=== PATIENT | female | born 1970 | race African-American/Black ===

== ENCOUNTER 2017-04-12 19:25 | Inpatient (IN) | payer OTHER ==
[~2017-04-12] VITALS: Ht 162.6 cm; Wt 112.2 kg
[2017-04-12 19:55] VITALS: BP 141/66
[2017-04-12] MEDS ORDERED: ONDANSETRON ODT 4 MG TAB.RAPDIS PO PRN (20:30)
[2017-04-12] MEDS ORDERED: CONTRAST GIVEN MC PRN (20:30)
[2017-04-12] MEDS ORDERED: ACETAMINOPHEN 500 MG TABLET PO PRN (20:45)
[2017-04-12] MEDS: IV 1/2 NORMAL SALINE 1,000 ML IV SCH (20:48)
[2017-04-12] MEDS: ENOXAPARIN ** NOTE DOSE ** SYRINGE SQ SCH (20:54)
[2017-04-12] MEDS: ACETAMINOPHEN 325 MG TABLET PO PRN (20:55)
[2017-04-12] MEDS ORDERED: TRAM50TA PO (21:11)
[2017-04-12] MEDS ORDERED: celebrex (21:11)
[2017-04-12] MEDS: CLINDAMYCIN 600MG PREMIX 50 ML IV SCH (23:39)
[2017-04-13] MEDS: IV 1/2 NORMAL SALINE 1,000 ML IV SCH ×4 (05:25→19:41)
[2017-04-13] MEDS: ACETAMINOPHEN 325 MG TABLET PO PRN ×3 (05:34→20:29)
[2017-04-13 05:46] VITALS: BP 137/80
[2017-04-13 06:15] LABS: BASO % 0 % (0-3); EOS % 0 % (0-3); HEMATOCRIT 34.7 % (36.0-47.0); HEMOGLOBIN 11.5 g/dL (12.0-15.5); LYMPH # 1.8 x10^3/uL (1.0-4.8); LYMPH % 13 % (24-48); MEAN CORPUSCULAR HEMOGLOBIN 27 pg (25-35); MEAN CORPUSCULAR HGB CONC 33 g/dL (31-37); MEAN CORPUSCULAR VOLUME 80 fL (79-100); MONO # 0.8 x10^3/uL (0.0-1.1); MONO % 6 % (0-9); NEUT # 10.9 x10^3uL (1.8-7.7); NEUT % 80 % (31-73); PLATELET COUNT 235 x10^3/uL (140-400); RED BLOOD COUNT 4.33 x10^6/uL (3.50-5.40); RED CELL DISTRIBUTION WIDTH 16.6 % (11.5-14.5); WHITE BLOOD COUNT 13.5 x10^3/uL (4.0-11.0)
[2017-04-13] MEDS: CLINDAMYCIN 600MG PREMIX 50 ML IV SCH ×3 (06:20→21:19)
[2017-04-13 06:22] LABS: CALCIUM 8.9 mg/dL (8.5-10.1); CREATININE 0.7 mg/dL (0.6-1.0); POTASSIUM 3.6 mmol/L (3.5-5.1)
[2017-04-13] MEDS ORDERED: IOHEXOL 300 MG/ML 75 ML VIAL. IV ONE (07:45)
--- NOTE | 2017-04-13 08:16 | RAD ---
CAD imaging of the chest Indication: Elevated d-dimer, chest pain. Technique: CT angiogram of chest with 75 mL of Omnipaque 300 IV contrast with sagittal and coronal MIP reformats. Comparison: None Findings: No evidence of filling defects in the central, segmental or subsegmental pulmonary arteries. Heart is normal in size. No pericardial or pleural effusion. No axillary, mediastinal or hilar adenopathy. No focal consolidation. No pulmonary nodules. Visualized sections through the liver, spleen, adrenal glands, pancreas are within normal limits. Redemonstrated are inflammatory changes in the left upper quadrant with thickening of the splenic flexure wall and calcified diverticuli. No suspicious bony lesions. Multilevel degenerative disc disease noted. Impression: 1. No PE. 2. No pneumonia. 3. Left upper quadrant inflammatory changes compatible with splenic flexure diverticulitis. PQRS Compliance Statement: One or more of the following individualized dose reduction techniques were utilized for this examination: 1. Automated exposure control 2. Adjustment of the mA and/or kV according to patient size 3. Use of iterative reconstruction technique
[2017-04-13] MEDS: ENOXAPARIN ** NOTE DOSE ** SYRINGE SQ SCH ×2 (08:33→20:29)
[2017-04-13 10:34] VITALS: BP 140/90
--- NOTE | 2017-04-13 12:25 | RAD ---
Right lower extremity venous ultrasound, 04/13/2017 : History: Elevated d-dimer right calf swelling Duplex evaluation including grayscale, color flow and spectral Doppler analysis was performed. The femoral and popliteal veins show no filling defects to suggest DVT. The visualized deep veins in the right calf are unremarkable. IMPRESSION: There is no sonographic evidence of deep vein thrombosis in the right lower extremity
[2017-04-13 15:53] VITALS: BP 147/95
[2017-04-13 19:47] VITALS: BP 145/87
--- NOTE | 2017-04-13 20:28 | PN ---
DATE: 04/12/2017 SUBJECTIVE: A 46-year-old female in with left upper quadrant pain. CT scan showed diverticulitis. The patient admitted and placed on IV antibiotic therapy. Unable to take medications orally because of some nausea. In any case, the patient's white count was 13,000. She also had an elevated temperature of 101.4. In any case, the patient is feeling a little better this morning, but still very tender in the left upper quadrant. PHYSICAL EXAMINATION: GENERAL: The patient is alert and oriented. LUNGS: Clear. CARDIOVASCULAR: Stable. ABDOMEN: Soft. Definite tenderness in that left upper quadrant area. Some slight guarding, but no rebound and positive bowel sounds. EXTREMITIES: Right lower leg markedly swollen and erythematous. Positive D-dimer. CTA negative for clots. However, the patient does have marked swelling to that right lower leg. We will get a venous Doppler on that because of not only swelling, but heat and equivocal Homans ad go from there after that ultrasound. She is on Lovenox for now and continue on that till we get the report back on her Doppler study. IMPRESSION: Diverticulitis of the splenic flexure. Right lower leg is swollen and erythematous. PLAN: Continue with IV antibiotic therapy, IV fluids, and clear liquids and make further evaluation once the other reports are back. CLARA SMITH MD DR: SELVIN/hi JOB#: [id number] / [id number]
[2017-04-13 22:00] VITALS: BP 131/72
[2017-04-14] MEDS: CLINDAMYCIN 600MG PREMIX 50 ML IV SCH (05:38)
[2017-04-14] MEDS: IV 1/2 NORMAL SALINE 1,000 ML IV SCH ×3 (05:38→17:12)
[2017-04-14 05:51] VITALS: BP 143/74
[2017-04-14 06:45] LABS: CALCIUM 8.4 mg/dL (8.5-10.1); CREATININE 0.7 mg/dL (0.6-1.0); POTASSIUM 3.1 mmol/L (3.5-5.1)
[2017-04-14 07:08] LABS: BASO % 0 % (0-3); EOS % 0 % (0-3); HEMATOCRIT 33.7 % (36.0-47.0); HEMOGLOBIN 10.9 g/dL (12.0-15.5); LYMPH # 1.3 x10^3/uL (1.0-4.8); LYMPH % 10 % (24-48); MEAN CORPUSCULAR HEMOGLOBIN 26 pg (25-35); MEAN CORPUSCULAR HGB CONC 32 g/dL (31-37); MEAN CORPUSCULAR VOLUME 81 fL (79-100); MONO # 0.8 x10^3/uL (0.0-1.1); MONO % 6 % (0-9); NEUT # 11.2 x10^3uL (1.8-7.7); NEUT % 84 % (31-73); PLATELET COUNT 228 x10^3/uL (140-400); RED BLOOD COUNT 4.18 x10^6/uL (3.50-5.40); RED CELL DISTRIBUTION WIDTH 16.3 % (11.5-14.5); WHITE BLOOD COUNT 13.4 x10^3/uL (4.0-11.0)
[2017-04-14] MEDS ORDERED: ENOXAPARIN 40 MG/0.4 ML DISP.SYRIN. SQ SCH (09:30)
[2017-04-14] MEDS: MEROPENEM 1 GM in IV NORMAL SALINE 100ML 100 ML IV SCH ×3 (10:05→21:53)
[2017-04-14] MEDS: HYDROmorphone 2 MG TABLET PO PRN ×2 (10:09→17:12)
[2017-04-14] MEDS: ENOXAPARIN 40 MG/0.4 ML DISP.SYRIN. SQ SCH ×2 (10:45→20:05)
[2017-04-14 11:00] VITALS: BP 124/68
--- NOTE | 2017-04-14 11:57 | RAD ---
CT of the abdomen without contrast, 04/14/2017: History: Follow-up diverticulitis No IV contrast was administered as requested. Comparison is made to a study from 04/12/2017. Scattered colonic diverticula are again noted. The pelvis was not completely included on today's exam. There is moderate ongoing paracolic inflammation at the splenic flexure level. There is underlying mural thickening extending into the proximal descending colon. Two rounded radiopacities at this level are compatible with residual contrast within underlying diverticula. The degree of paracolic inflammation has worsened slightly. A small extraluminal gas bubble is now evident within the inflammation. No discrete drainable paracolic abscess is seen. There is now a tiny amount of fluid and minimal atelectasis in the posterior gutter on the left. The unopacified liver shows no abnormality. Radiopacities within the dependent aspect of the gallbladder most likely represent vicarious excretion of IV contrast by the gallbladder. The pancreas cannot be clearly from unopacified bowel. The spleen is of normal size. The unopacified kidneys show no abnormality. IMPRESSION: 1. Colonic diverticulosis. 2. Acute diverticulitis involving the splenic flexure of the colon with slight worsening of the paracolic inflammation since 04/12/2017. No discrete paracolic abscess is evident. PQRS Compliance Statement: One or more of the following individualized dose reduction techniques were utilized for this examination: 1. Automated exposure control 2. Adjustment of the mA and/or kV according to patient size 3. Use of iterative reconstruction technique
[2017-04-14 15:03] VITALS: BP 135/64
--- NOTE | 2017-04-14 15:46 | PN ---
DATE: 04/14/2017 SUBJECTIVE: A 46-year-old -[place] female with diverticulitis. The patient is pretty much stabilized, but not doing terribly better. The patient continues to ____ change her antibiotics to meropenem 1 g q.8 h. OBJECTIVE: VITAL SIGNS: Blood pressure 140/70, respiratory rate 20, pulse 96, temperature 99.6. GENERAL: The patient is alert and oriented. LUNGS: Clear. CARDIOVASCULAR: Stable. ABDOMEN: Soft, diffuse tenderness in the left upper quadrant. LABORATORY DATA: Repeat CT scan without contrast white count stable at 13, hemoglobin 10 and hematocrit 33. Electrolytes showed potassium low, may need to give additional potassium there. IMPRESSION: Diverticulitis, left upper quadrant pain, hypokalemia, sepsis. PLAN: Repeat CAT scan and make further evaluation on her as indicated. CLARA SMITH MD DR: SELVIN/hi JOB#: [id number] / [id number]
[2017-04-14] MEDS: POTASSIUM CHLORIDE 10 MEQ TABLET.ER. PO SCH ×2 (17:31→20:04)
[2017-04-14] MEDS ORDERED: CELE200C PO (17:34)
[2017-04-14 19:25] VITALS: BP 121/61
[2017-04-14] MEDS ORDERED: POTASSIUM CHLORIDE 20 MEQ/15 ML ORAL LIQUID. PO SCH (20:00)
[2017-04-14] MEDS ORDERED: CELECOXIB 200 MG CAPSULE PO SCH (21:00)
[2017-04-14 23:59] VITALS: BP 119/71
[2017-04-15] MEDS: IV 1/2 NORMAL SALINE 1,000 ML IV SCH ×3 (01:35→14:55)
[2017-04-15] MEDS: HYDROmorphone 2 MG TABLET PO PRN (04:18)
[2017-04-15 05:01] VITALS: BP 155/75
[2017-04-15] MEDS: MEROPENEM 1 GM in IV NORMAL SALINE 100ML 100 ML IV SCH ×2 (05:58→13:39)
[2017-04-15 06:08] LABS: CALCIUM 8.3 mg/dL (8.5-10.1); CREATININE 0.6 mg/dL (0.6-1.0); GFR 130.2; POTASSIUM 3.7 mmol/L (3.5-5.1)
[2017-04-15 06:35] LABS: BASO % 0 % (0-3); EOS # 0.2 x10^3/uL (0.0-0.7); EOS % 2 % (0-3); HEMATOCRIT 31.5 % (36.0-47.0); HEMOGLOBIN 10.5 g/dL (12.0-15.5); LYMPH # 1.6 x10^3/uL (1.0-4.8); LYMPH % 16 % (24-48); MEAN CORPUSCULAR HEMOGLOBIN 27 pg (25-35); MEAN CORPUSCULAR HGB CONC 33 g/dL (31-37); MEAN CORPUSCULAR VOLUME 80 fL (79-100); MONO # 0.7 x10^3/uL (0.0-1.1); MONO % 7 % (0-9); NEUT # 7.2 x10^3uL (1.8-7.7); NEUT % 74 % (31-73); PLATELET COUNT 220 x10^3/uL (140-400); RED BLOOD COUNT 3.93 x10^6/uL (3.50-5.40); RED CELL DISTRIBUTION WIDTH 16.5 % (11.5-14.5); WHITE BLOOD COUNT 9.8 x10^3/uL (4.0-11.0)
[2017-04-15] MEDS: ENOXAPARIN 40 MG/0.4 ML DISP.SYRIN. SQ SCH (10:14)
[2017-04-15 12:07] VITALS: BP 140/77
[2017-04-15] MEDS ORDERED: MERO1VIA IV (12:47)
--- NOTE | 2017-04-15 15:30 | PN ---
DATE: 04/15/2017 SUBJECTIVE: A 46-year-old female, in with diverticulitis. The patient had been tried on Levaquin and Cleocin without really any success. The last CT showed some actual worsening of the diverticulitis. We changed over to meropenem. She is doing much better. OBJECTIVE: VITAL SIGNS: Temperature is down 98.3, blood pressure 150/70, respiratory rate 18, pulse 80. GENERAL: The patient is alert and oriented. LUNGS: Clear. CARDIOVASCULAR: Regular rhythm, stable. ABDOMEN: Soft. Definite tenderness in that left upper quadrant area and splenic flexure where the diverticulitis is, but no rebounding. The patient has bowel sounds, she has been having positive bowel movements, seem to be basically stable at the present time although painful when she has them. The patient otherwise continues on IV meropenem, obviously she was septic without it. The patient, in turn, is to continue on that. We will put a PICC line there. As such, this particular infection did not respond to Levaquin and Cleocin, potentially oral antibiotics. In any case, we will go ahead and have her put the PICC line in and make further evaluation. CLARA SMITH MD DR: SELVIN/hi JOB#: [id number] / [id number]
== END 2017-04-15 15:45 | disposition home health service (06) | DRG 872 ==
LOC: ICU 19:25
PROVIDERS: ADMIT Family Medicine; ATTEND Family Medicine
PROC: 05HF33Z Insertion of Infusion Device into Left Cephalic Vein, Percutaneous Approach (ICD-10-PCS; principal; 2017-04-15)
PROC: B54NZZA Ultrasonography of Left Upper Extremity Veins, Guidance (ICD-10-PCS; 2017-04-15)
DX: A41.9 Sepsis, unspecified organism (principal); K57.32 Diverticulitis of large intestine without perforation or abscess without bleeding; Z68.41 Body mass index [BMI] 40.0-44.9, adult; E87.6 Hypokalemia; M79.89 Other specified soft tissue disorders; R63.0 Anorexia; Z98.51 Tubal ligation status; Z88.8 Allergy status to other drugs, medicaments and biological substances
CPT/HCPCS: 36415; 71275; 74150; 80048; 83605; 83735; 85025; 87641; 93971; J1650; J1956; J2185; J3010; J3490; J7030; Q9967; 97110; 97535

== ENCOUNTER → 2017-04-12 | Outpatient (CLI) | payer OTHER ==
[~2017-04-12] MED LIST: CELE200C PO; IOHEXOL 240 MG/ML 50ML VIAL. ONE; IOHEXOL 300 MG/ML 75 ML VIAL. IV ONE; MERO1VIA IV; TRAM50TA PO; celebrex
[2017-04-12 17:15] LABS: BASO % 0 % (0-3); EOS % 0 % (0-3); HEMATOCRIT 37.1 % (36.0-47.0); HEMOGLOBIN 12.2 g/dL (12.0-15.5); LYMPH # 1.4 x10^3/uL (1.0-4.8); LYMPH % 12 % (24-48); MEAN CORPUSCULAR HEMOGLOBIN 26 pg (25-35); MEAN CORPUSCULAR HGB CONC 33 g/dL (31-37); MEAN CORPUSCULAR VOLUME 80 fL (79-100); MONO # 0.8 x10^3/uL (0.0-1.1); MONO % 7 % (0-9); NEUT # 9.5 x10^3uL (1.8-7.7); NEUT % 81 % (31-73); PLATELET COUNT 249 x10^3/uL (140-400); RED BLOOD COUNT 4.61 x10^6/uL (3.50-5.40); RED CELL DISTRIBUTION WIDTH 16.5 % (11.5-14.5); WHITE BLOOD COUNT 11.7 x10^3/uL (4.0-11.0)
[2017-04-12 17:24] LABS: ALBUMIN 3.5 g/dL (3.4-5.0); ALBUMIN/GLOBULIN RATIO 0.7 (1.0-1.7); CALCIUM 9.2 mg/dL (8.5-10.1); CREATININE 0.7 mg/dL (0.6-1.0); POTASSIUM 3.8 mmol/L (3.5-5.1); TOTAL BILIRUBIN 0.8 mg/dL (0.2-1.0); TOTAL PROTEIN 8.8 g/dL (6.4-8.2)
--- NOTE | 2017-04-12 18:37 | RAD ---
Exam performed: CT abdomen and pelvis with contrast HISTORY: Patient is vomiting and unable to keep anything down. Chills no fever left upper quadrant pain for 3 days DATE OF SERVICE: 04/12/2017. COMPARISON: None available TECHNIQUE: Contiguous helical acquisitions are obtained through the abdomen and pelvis during intravenous administration of 75 cc of Omnipaque 300. Sagittal and coronal reformatted images are obtained and reviewed. FINDINGS: Inflammatory changes seen in the left upper abdomen and relation to the splenic flexure probably related to diverticuli. No microperforation is seen. The lung bases are clear. Linear left basilar atelectasis. The visualized heart is normal. The liver, gallbladder, spleen and pancreas appear grossly normal. Both adrenal glands and bilateral kidneys are normal in size with symmetric excretion of contrast via both kidneys. Simple bilateral renal cysts. No nephrolithiasis or hydronephrosis. The aorta is normal in caliber without aneurysm. No retroperitoneal or mesenteric lymphadenopathy seen. Scattered stool in the colon. The visualized appendix is normal. No inflammatory changes seen in the right lower quadrant. Tiny clinical hernia containing omental fat. Diffuse sigmoid diverticulosis without acute diverticulitis. The urinary bladder is partially decompressed. Uterus is retroverted. No adnexal masses seen. No free or focal fluid collections or pelvic lymphadenopathy seen. Interrogation of bone windows is unremarkable, mild spondylotic changes are seen. IMPRESSION: Diffuse colonic diverticulosis with inflammatory changes in the left upper quadrant in relation to the splenic flexure probably related to acute diverticulitis. Appendix is normal. PQRS Compliance Statement: One or more of the following individualized dose reduction techniques were utilized for this examination: 1. Automated exposure control 2. Adjustment of the mA and/or kV according to patient size 3. Use of iterative reconstruction technique Electronically signed by: Oleysa De La Rosa MD (04/12/2017 6:33 PM) [facility]
== END | disposition home or self-care (01) ==
LOC: CT 16:29
PROVIDERS: ATTEND Physician Assistant
DX: N28.1 Cyst of kidney, acquired (principal); K57.30 Diverticulosis of large intestine without perforation or abscess without bleeding; K46.9 Unspecified abdominal hernia without obstruction or gangrene; J98.11 Atelectasis; R63.0 Anorexia; R68.83 Chills (without fever)
CPT/HCPCS: 36415; 74177; 80053; 82150; 83690; 85025; 85379; Q9966; Q9967

== ENCOUNTER 2017-05-27 12:33 | Inpatient (IN) | payer OTHER ==
[~2017-05-27] VITALS: Ht 165.1 cm; Wt 111.2 kg
[~2017-05-27 12:33] MED LIST changes: -IOHEXOL 240 MG/ML 50ML VIAL. ONE; -IOHEXOL 300 MG/ML 75 ML VIAL. IV ONE
[2017-05-27] MEDS ORDERED: IV NORMAL SALINE 1,000ML 1,000 ML IV SCH (12:45)
--- NOTE | 2017-05-27 12:45 | PHYS DOC ---
General Chief Complaint: abdominal pain Stated Complaint: LUIS WANT PT TO HAVE CT Time Seen by MD: 12:34 Source: patient Exam Limitations: no limitations Problems: History of Present Illness Initial Comments PCP Dr Smith Patient is a 46-year-old female who comes to the emergency department sent by Dr. Smith's office with abdominal pain. Patient was inpatient here earlier this month on May 16 with diverticulitis , symptoms resolved after 3 days and meropenem intravenously, patient was sent home. She says she's been doing pretty well until yesterday morning when she awoke she noted periumbilical abdominal discomfort and sharp pains with movement. Today pain persists, it is worse with movement better with rest and the patient has not eaten today due to the pain. She says the pain has moved, it had been upper abdomen and periumbilical now she describes it as in the lower abdomen. She's been observing diverticulitis precautions last by mouth intake was [place] steak onions and vegetables yesterday evening. Patient had some chills last night and today abdominal pain is sharp and crampy described as moderate. 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 On arrival patient is afebrile and vital signs are stable Timing/Duration: 24 hours Severity: moderate Modifying Factors: improves with medication, worse with movement Associated Symptoms: other Allergies: Coded Allergies: codeine (Verified Allergy, Unknown, 04/12/17) Past Medical History Medical History: no pertinent history Surgical History: noncontributory Social History Smoker: non-smoker Alcohol: none Drugs: none Review of Systems Constitutional: see HPI, denies diaphoresis, denies fever, denies malaise Respiratory: denies cough, denies shortness of breath, denies wheezing Cardiovascular: denies chest pain, denies palpitations, denies syncope Gastrointestinal: see HPI Genitourinary: denies dysuria, denies frequency, denies hematuria Musculoskeletal: denies back pain, denies joint swelling, denies neck pain Psychiatric/Neurological: denies headache, denies numbness, denies paresthesia Hematologic/Lymphatic: denies blood clots, denies easy bleeding, denies easy bruising Physical Exam General Appearance: no apparent distress, obese Ear, Nose, Throat: hearing grossly normal, normal ENT inspection, normal pharynx Neck: non-tender, supple Respiratory: normal breath sounds, no respiratory distress Cardiovascular: normal peripheral pulses, regular rate, rhythm Gastrointestinal: soft (nondistended, generalized tenderness with focality in the left lower quadrant and lower abdomen no rebound guarding or palpable masses bowel sounds are diminished) Back: no CVA tenderness, no vertebral tenderness Extremities: non-tender, normal inspection 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 PHYSICIAN: JUN ROLLE DO REASON: periumbilical/RLQ pain, h/o diverticulitis PROCEDURE: CT ABD PELV W/ORAL&IV CONTRAST CT abdomen and pelvis without contrast 05/27/2017 Clinical indication: Periumbilical and right lower quadrant abdominal pain. History of diverticulitis. Comparison: CT abdomen and pelvis 04/14/2017 Technique: Multiple CT images of the abdomen and pelvis were obtained following the intravenous administration of 75 mL Isovue-370. PQRS Compliance Statement: One or more of the following individualized dose reduction techniques were utilized for this examination: 1. Automated exposure control 2. Adjustment of the mA and/or kV according to patient size 3. Use of iterative reconstruction technique Findings: Abdomen and pelvis: Heart size is normal. Visualized lung bases are clear. There is diffuse hepatic steatosis. There is an ill-defined hypodensity hepatic segment 4A measuring 0.8 cm series 2/image 14. Gallbladder, spleen, adrenal glands, pancreas and left kidney are unremarkable. There is a stable hypodensity in the interpolar right kidney which is too small to definitely characterize. No hydronephrosis. Abdominal aorta is normal in caliber. Small and large bowel loops are normal in caliber without obstruction. There is been near complete resolution of pericolonic stranding at the colonic splenic flexure. There is moderate descending and sigmoid diverticulosis. There is circumferential mural thickening and pericolonic stranding adjacent to the mid sigmoid colon as seen on series 2/image 59. No pericolonic drainable gas/fluid collection. No retroperitoneal or mesenteric lymphadenopathy. Appendix is normal in appearance. There is trace dependent free fluid, likely reactive. Uterus is present blowing completely evaluated by CT. Urinary bladder is decompressed. No iliac or internal lymphadenopathy. Multilevel lower thoracic and lumbar spondylosis with no destructive osseous lesions. Impression: 1. Acute sigmoid diverticulitis. No pericolonic drainable gas/fluid collection. 2. Near complete resolution of diverticulitis at the splenic flexure. 3. Ill-defined hepatic hypodensity measuring 0.8 cm hepatic segment 4A. Finding may represent more focal fatty steatosis, though technically indeterminate. Follow-up MRI abdomen with and without contrast in 3 months is recommended. DICTATED AND SIGNED BY: JOSE FLOWERS MD DATE: 05/27/17 1067 CC: CLARA SMITH MD; JUN ROLLE DO ~ Slight leukocytosis and Debora in the urine otherwise labs unremarkable. 1430: I discussed the patient with Dr. Smith who he requests we admit the patient inpatient MedSurg status for bowel rest hydration and intravenous antibiotics, specifically meropenem. I discussed this with the patient she is agreeable. Patient continues to refuse pain medications. Impressions: Acute sigmoid diverticulitis Splenic flexure diverticulitis, resolving Candiduria Departure Time of Disposition: 14:34 Disposition: 09 ADMITTED INPATIENT Diagnosis: acute sigmoid diverticulitis Condition: STABLE Additional Instructions: Inpatient MedSurg admission Dr. Smith is accepting JUN ROLLE DO May 27, 2017 12:45
[2017-05-27] MEDS ORDERED: IOHEXOL 240 MG/ML 50ML VIAL. ONE (12:51)
[2017-05-27] MEDS ORDERED: CONTRAST GIVEN MC PRN (13:00)
[2017-05-27] MEDS ORDERED: ONDANSETRON PF 4 MG/2 ML VIAL. IV ONE (13:00)
[2017-05-27] MEDS ORDERED: KETOROLAC 30 MG/ML VIAL. IV ONE (13:00)
[2017-05-27] MEDS ORDERED: IOHEXOL 300 MG/ML 75 ML VIAL. IV ONE (13:00)
[2017-05-27 13:33] LABS: ALBUMIN 3.7 g/dL (3.4-5.0); ALBUMIN/GLOBULIN RATIO 0.7 (1.0-1.7); CALCIUM 9.8 mg/dL (8.5-10.1); CREATININE 0.8 mg/dL (0.6-1.0); GFR 93.4; POTASSIUM 3.7 mmol/L (3.5-5.1); TOTAL BILIRUBIN 0.8 mg/dL (0.2-1.0); TOTAL PROTEIN 9.3 g/dL (6.4-8.2)
[2017-05-27 13:39] LABS: HEMATOCRIT 37.8 % (36.0-47.0); HEMOGLOBIN 12.3 g/dL (12.0-15.5); MEAN CORPUSCULAR HEMOGLOBIN 26 pg (25-35); MEAN CORPUSCULAR HGB CONC 33 g/dL (31-37); MEAN CORPUSCULAR VOLUME 81 fL (79-100); PLATELET COUNT 247 x10^3/uL (140-400); RED BLOOD COUNT 4.69 x10^6/uL (3.50-5.40); RED CELL DISTRIBUTION WIDTH 16.3 % (11.5-14.5); WHITE BLOOD COUNT 11.7 x10^3/uL (4.0-11.0)
[2017-05-27 14:10] LABS: BARBITURATES NEG (NEG); BENZODIAZEPINES NEG (NEG); CANNABINOIDS NEG (NEG); COCAINE NEG (NEG); METHADONE NEG (NEG); OPIATES NEG (NEG); PHENCYCLIDINE NEG (NEG)
[2017-05-27 14:11] LABS: AMPHETAMINE/METHAMPHETAMINE NEG (NEG)
[2017-05-27 14:14] LABS: BACTERIA,URINE FEW /HPF (0-FEW); BILIRUBIN,URINE NEG (NEG); CLARITY,URINE HAZY; COLOR,URINE YELLOW; GLUCOSE,URINE NEG (NEG); NITRITE,URINE NEG (NEG); RBC,URINE 0 /HPF (0-2); SQUAMOUS EPITHELIAL CELL,UR MANY /LPF; UROBILINOGEN,URINE 1 mg/dL (0.2 mg/dL); YEAST,URINE PRESENT /HPF
--- NOTE | 2017-05-27 14:17 | RAD ---
CT abdomen and pelvis without contrast 05/27/2017 Clinical indication: Periumbilical and right lower quadrant abdominal pain. History of diverticulitis. Comparison: CT abdomen and pelvis 04/14/2017 Technique: Multiple CT images of the abdomen and pelvis were obtained following the intravenous administration of 75 mL Isovue-370. PQRS Compliance Statement: One or more of the following individualized dose reduction techniques were utilized for this examination: 1. Automated exposure control 2. Adjustment of the mA and/or kV according to patient size 3. Use of iterative reconstruction technique Findings: Abdomen and pelvis: Heart size is normal. Visualized lung bases are clear. There is diffuse hepatic steatosis. There is an ill-defined hypodensity hepatic segment 4A measuring 0.8 cm series 2/image 14. Gallbladder, spleen, adrenal glands, pancreas and left kidney are unremarkable. There is a stable hypodensity in the interpolar right kidney which is too small to definitely characterize. No hydronephrosis. Abdominal aorta is normal in caliber. Small and large bowel loops are normal in caliber without obstruction. There is been near complete resolution of pericolonic stranding at the colonic splenic flexure. There is moderate descending and sigmoid diverticulosis. There is circumferential mural thickening and pericolonic stranding adjacent to the mid sigmoid colon as seen on series 2/image 59. No pericolonic drainable gas/fluid collection. No retroperitoneal or mesenteric lymphadenopathy. Appendix is normal in appearance. There is trace dependent free fluid, likely reactive. Uterus is present blowing completely evaluated by CT. Urinary bladder is decompressed. No iliac or internal lymphadenopathy. Multilevel lower thoracic and lumbar spondylosis with no destructive osseous lesions. Impression: 1. Acute sigmoid diverticulitis. No pericolonic drainable gas/fluid collection. 2. Near complete resolution of diverticulitis at the splenic flexure. 3. Ill-defined hepatic hypodensity measuring 0.8 cm hepatic segment 4A. Finding may represent more focal fatty steatosis, though technically indeterminate. Follow-up MRI abdomen with and without contrast in 3 months is recommended.
[2017-05-27 14:31] LABS: % BANDS 0 % (0-9); % BASOS 0 % (0-3); % EOS 0 % (0-5); % LYMPHS 20 % (24-48); % MONOS 1 % (0-10); % SEGS 79 % (35-66); PLT ESTIMATE ADEQUATE (ADEQUATE)
[2017-05-27] MEDS ORDERED: ONDANSETRON PF 4 MG/2 ML VIAL. IV PRN ×2 (14:45→16:15)
[2017-05-27] MEDS ORDERED: ACETAMINOPHEN 325 MG TABLET PO PRN (14:45)
[2017-05-27 15:08] VITALS: BP 146/72
[2017-05-27] MEDS ORDERED: MEROPENEM 1 GM in IV NORMAL SALINE 100ML 100 ML IV ONE (15:20)
[2017-05-27] MEDS ORDERED: KETOROLAC 30 MG/ML VIAL. IV PRN (16:15)
[2017-05-27] MEDS: IV NORMAL SALINE 1,000ML 1,000 ML IV SCH ×2 (16:16→21:17)
[2017-05-27] MEDS: MEROPENEM 1 GM in IV NORMAL SALINE 100ML 100 ML IV SCH ×2 (17:23→21:17)
[2017-05-27 19:59] VITALS: BP 128/83
[2017-05-27] MEDS: FAMOTIDINE 20 MG/2 ML VIAL IVP SCH (21:16)
[2017-05-27] MEDS: ENOXAPARIN 40 MG/0.4 ML DISP.SYRIN. SQ SCH (21:16)
[2017-05-27] MEDS ORDERED: MEROPENEM 1 GM in IV NORMAL SALINE 100ML 100 ML IV SCH (22:00)
[2017-05-27 22:46] VITALS: BP 110/75
[2017-05-28] MEDS: MEROPENEM 1 GM in IV NORMAL SALINE 100ML 100 ML IV SCH ×3 (05:56→20:58)
[2017-05-28] MEDS: IV NORMAL SALINE 1,000ML 1,000 ML IV SCH ×2 (05:57→09:50)
[2017-05-28 06:19] LABS: BASO % 0 % (0-3); EOS # 0.2 x10^3/uL (0.0-0.7); EOS % 3 % (0-3); HEMATOCRIT 31.7 % (36.0-47.0); HEMOGLOBIN 10.4 g/dL (12.0-15.5); LYMPH # 1.4 x10^3/uL (1.0-4.8); LYMPH % 19 % (24-48); MEAN CORPUSCULAR HEMOGLOBIN 27 pg (25-35); MEAN CORPUSCULAR HGB CONC 33 g/dL (31-37); MEAN CORPUSCULAR VOLUME 81 fL (79-100); MONO # 0.4 x10^3/uL (0.0-1.1); MONO % 6 % (0-9); NEUT # 5.5 x10^3uL (1.8-7.7); NEUT % 72 % (31-73); PLATELET COUNT 215 x10^3/uL (140-400); RED BLOOD COUNT 3.91 x10^6/uL (3.50-5.40); RED CELL DISTRIBUTION WIDTH 16.1 % (11.5-14.5); WHITE BLOOD COUNT 7.6 x10^3/uL (4.0-11.0)
[2017-05-28 06:35] LABS: CALCIUM 8.4 mg/dL (8.5-10.1); CREATININE 0.7 mg/dL (0.6-1.0); POTASSIUM 3.8 mmol/L (3.5-5.1)
[2017-05-28 06:47] VITALS: BP 116/78
[2017-05-28] MEDS: FAMOTIDINE 20 MG/2 ML VIAL IVP SCH ×2 (09:13→20:57)
[2017-05-28 10:48] VITALS: BP 138/71
[2017-05-28 15:18] VITALS: BP 121/79
[2017-05-28] MEDS ORDERED: IBUPROFEN 400 MG TABLET. PO PRN (16:00)
--- NOTE | 2017-05-28 18:17 | PN ---
DATE: SUBJECTIVE: A 46-year-old female with sigmoid diverticulitis. The patient had recent splenic flexure diverticulitis, which healed up; however, now she has developed the problem of acute sigmoid diverticulitis. The patient otherwise seems to be resting fairly comfortably this morning. She says she is a little better. She is refining still operator in her left lower quadrant. White count has come down from 12 to 7, hemoglobin from 12 to 10. The patient otherwise will continue to be monitored carefully, make further evaluation on her as indicated. We will continue on IV antibiotic therapy. OBJECTIVE: VITAL SIGNS: Otherwise, her vital signs include blood pressure of 140/70, respiratory rate 80, presently afebrile. GENERAL: The patient is alert and oriented. LUNGS: Clear. CARDIOVASCULAR: Stable. ABDOMEN: Soft. Definite tenderness in the left lower quadrant, better than it was, but refining still operator. PLAN: We will continue with IV antibiotic therapy, monitoring her carefully, make further evaluation on her. IMPRESSION: Recurrent, in this case, sigmoid diverticulitis. CLARA SMITH MD DR: SELVIN/hi JOB#: [id number] / [id number]
[2017-05-28 19:51] VITALS: BP 106/61
[2017-05-28] MEDS: ENOXAPARIN 40 MG/0.4 ML DISP.SYRIN. SQ SCH (20:57)
[2017-05-28 23:25] VITALS: BP 111/78
[2017-05-29] MEDS: MEROPENEM 1 GM in IV NORMAL SALINE 100ML 100 ML IV SCH ×2 (04:53→13:56)
[2017-05-29 05:39] VITALS: BP 149/81
[2017-05-29] MEDS ORDERED: IV NORMAL SALINE 1,000ML 1,000 ML IV SCH (05:45)
[2017-05-29 07:18] LABS: BASO % 0 % (0-3); EOS # 0.2 x10^3/uL (0.0-0.7); EOS % 4 % (0-3); HEMATOCRIT 31.4 % (36.0-47.0); HEMOGLOBIN 10.3 g/dL (12.0-15.5); LYMPH # 1.2 x10^3/uL (1.0-4.8); LYMPH % 19 % (24-48); MEAN CORPUSCULAR HEMOGLOBIN 26 pg (25-35); MEAN CORPUSCULAR HGB CONC 33 g/dL (31-37); MEAN CORPUSCULAR VOLUME 80 fL (79-100); MONO # 0.5 x10^3/uL (0.0-1.1); MONO % 9 % (0-9); NEUT # 4.2 x10^3uL (1.8-7.7); NEUT % 68 % (31-73); PLATELET COUNT 211 x10^3/uL (140-400); RED BLOOD COUNT 3.91 x10^6/uL (3.50-5.40); RED CELL DISTRIBUTION WIDTH 15.7 % (11.5-14.5); WHITE BLOOD COUNT 6.1 x10^3/uL (4.0-11.0)
[2017-05-29 07:31] LABS: CALCIUM 8.3 mg/dL (8.5-10.1); CREATININE 0.8 mg/dL (0.6-1.0); GFR 93.4; POTASSIUM 3.8 mmol/L (3.5-5.1)
[2017-05-29] MEDS: FAMOTIDINE 20 MG/2 ML VIAL IVP SCH (09:00)
[2017-05-29 11:00] VITALS: BP 149/84
--- NOTE | 2017-05-29 11:59 | PN ---
DATE: SUBJECTIVE: A 46-year-old female in with diverticulitis of the sigmoid area. The patient is doing some better, still has not had a bowel movement, and the patient is still having a little bit of pain in the left lower quadrant. OBJECTIVE: VITAL SIGNS: Blood pressure 149/80, respiratory 18, pulse 82, temperature 98. GENERAL: Still receiving IV antibiotic therapy. LUNGS: Clear. CARDIOVASCULAR: Stable. ABDOMEN: Soft, diffuse tenderness to that left lower quadrant area. LABORATORY DATA: The patient's hemoglobin was 10.3 and hematocrit 31, white counts good. Hemoglobin and hematocrit good. The BUN and creatinine looked real good. Her iron level is low at 25. She should be started on iron. We will wait until she has a BM, but other than that seems to be doing reasonably well overall. IMPRESSION: Therefore, sigmoid diverticulitis, iron deficiency anemia, hypocalcemia, constipation. We will have her continue to move around and make further evaluation. Start ____ supplement when she has had BM, given her prune juice. CLARA SMITH MD DR: SELVIN/hi JOB#: [id number] / [id number]
[2017-05-29] MEDS ORDERED: POLYETHYLENE GLYCOL 3350 17 GM PACKET. PO PRN (13:45)
[2017-05-29 15:07] VITALS: BP 136/80
[2017-05-29] MEDS ORDERED: METR500T PO ×2 (15:57→16:02)
[2017-05-29] MEDS ORDERED: LEVO500T59 PO (16:03)
[2017-05-29] MEDS ORDERED: LACTOBACILLUS RHAMNOSUS GG 1 CAPSULE. PO SCH (21:00)
--- NOTE | 2017-05-31 10:13 | DS ---
DATE OF DISCHARGE: 05/29/2017 HOSPITAL COURSE: A 46-year-old female came in with diverticulitis of the sigmoid area. Recently, she had a problem with diverticulitis of the splenic flexure that had cured and healed, but now she had that in the left lower quadrant of the sigmoid area. She was placed on IV antibiotic therapy and as a result of this, made excellent progress during the rest of her hospitalization. White count came down from 11 down to 6, hemoglobin; however, dropped from 12 down to 10. The patient's chemistries were all basically within normal limits. The patient made good progress during the rest of her hospitalization and she was discharged home. She will be followed up by GI as an outpatient and she was told to stay on a low fiber diet for 2 weeks and then high fiber diet after that and the patient will continue to be monitored. She will follow up in the office in 7-10 days or sooner as needed. Continue on MRAD. IMPRESSION: 1. Diverticulitis of the sigmoid area. 2. Iron deficiency anemia, iron level of 25. So, the patient will continue on oral antibiotics and then return to clinic for followup as indicated. CLARA SMITH MD DR: SELVIN/hi JOB#: [id number] / [id number]
== END 2017-05-29 16:31 | disposition home or self-care (01) | DRG 392 ==
LOC: ER 12:33 → 1 SOUTH 14:40
PROVIDERS: ADMIT Family Medicine; ATTEND Family Medicine
DX: K57.32 Diverticulitis of large intestine without perforation or abscess without bleeding (principal); E83.51 Hypocalcemia; D50.9 Iron deficiency anemia, unspecified; F17.200 Nicotine dependence, unspecified, uncomplicated; K59.00 Constipation, unspecified; K29.70 Gastritis, unspecified, without bleeding; Z88.8 Allergy status to other drugs, medicaments and biological substances; Z98.51 Tubal ligation status
CPT/HCPCS: 36415; 74177; 80048; 80053; 80307; 81001; 83540; 83550; 83605; 83690; 85007; 85025; 87086; 96361; 96374; J1650; J1885; J2185; J2405; Q9967; S0028; 99285-25; G0479; J7030